=== PATIENT | female | born 1930 | race Caucasian/White ===

== ENCOUNTER 2016-10-17 09:39 | Inpatient (IN) | payer MEDICARE, OTHER ==
--- NOTE | ~2016-10-17 | HP ---
History And Physical [facility] [address] [facility] [place]. [address] NAME: ISSAC CURRIE : 30 STATUS : ADM IN [facility]#: [id number] AGE: 85 ADM/REG DATE : 10/17/16 MR#: [id number] REPORT SERV DATE: 10/17/16 DICTATED BY: GINA MENDOSA DATE: 10/17/16 REPORT STATUS : Draft TRANSCRIBED BY: MODL DATE: 10/17/16 DATE OF ADMISSION: 10/17/2016 CHIEF COMPLAINT: Cough, subjective fever, chills, weakness, and more confusion for one week, getting progressively worse this week. HISTORY OF PRESENT ILLNESS: This is a very pleasant 85 years old female. She has a past medical history significant for severe Alzheimer's dementia. She is most dependent on activities of daily living. History of hypertension, trigeminal neuralgia, hypothyroidism, hyperlipidemia, depression with anxiety, prior valvular replacement, mitral and according to family aortic as well many years ago in [place]. She also had a pacemaker placed at the time of the surgery, presenting today to [facility] accompanied by her family due to decreased p.o. intake as well as a dry cough which got progressively worse this week, increasing confusion and weakness. As I said, the patient has fairly significant history of dementia, so the entire history has been taken by the patient's daughter. She is mostly dependent on the activities of daily living and if she got sick this year, actually she has been able though to feed herself and walk with a cane but she got very weak last week and she barely has been able to get out of her bed. In any case, she went to [place] in between to visit her relatives and while she was driving, she also had an episode of vomiting but that is not unusual for the patient and the fact that she started coughing especially most pronounced weak with possible subjective fevers and chills. The patient has been brought to the emergency room. The patient denies any complaints but coughs. She denies any chest pain. She says that she has been more short of breath and she had that feeling cold. No abdominal pain. No other nausea or vomiting. No diarrhea. More constipation though. No increased urinary frequency or urgency, but decreased significant of the p.o. intake with food and fluids as well. After initial evaluation in the emergency room, Hospitalist Service has been asked for admission, further evaluation, and treatment. PAST MEDICAL HISTORY: Significant for Alzheimer's dementia, hypertension, history of trigeminal neuralgia, hypothyroidism, hyperlipidemia, prior history of breast cancer, not currently in treatment, history of hyperlipidemia, history of degenerative joint disease, and osteoarthritis. PAST SURGICAL HISTORY: Include cholecystectomy, appendectomy, left breast removed, bilateral hip replacement, valvular repair as well as status post pacemaker, and bilateral wrist surgery as well. SOCIAL HISTORY: No tobacco. No alcohol. No IV drugs. ALLERGIES: THE PATIENT DOES NOT HAVE ANY DRUG ALLERGIES. FAMILY HISTORY: Significant for dementia. MEDICATIONS: At home include aspirin; Zebeta; Carbatrol; docusate; Synthroid; Claritin; Aleve; Pravachol; Exelon; Zoloft; and . History And Physical [address] [address] NAME: ISSAC CURRIE : 30 STATUS : ADM IN [facility]#: [id number] AGE: 85 ADM/REG DATE : 10/17/16 MR#: [id number] REPORT SERV DATE: 10/17/16 DICTATED BY: GINA MENDOSA DATE: 10/17/16 REPORT STATUS : Draft TRANSCRIBED BY: SVEN DATE: 10/17/16 REVIEW OF SYSTEMS: A 14-point review of systems has been obtained and pertinent positive has been listed into the history of present illness. Otherwise, negative except those underlying above. PHYSICAL EXAMINATION: VITAL SIGNS: Currently, the patient is afebrile. Blood pressure is 138/63, heart rate 86, respiratory rate 22, and saturating 92% on room air. GENERAL: She generally is a well-developed well-nourished female, ill-appearing, in acute distress. She is alert and oriented x0 at baseline according to family. HEENT: Shows pupils equal, round, reactive to light. Extraocular movements intact. No JVD. No lymphadenopathy. No thyromegaly appreciated. CHEST: Eval shows bilateral air entry. Bibasilarly crackles. No rhonchi or wheezes appreciated. CARDIOVASCULAR: The patient has regular rate and rhythm. Paced S1-S2 positive. No S3, no S4. No murmurs, rubs, or gallops appreciated. ABDOMEN: Soft with positive bowel sounds. Nontender. No guarding. No rebound. EXTREMITIES: No clubbing, cyanosis, or edema. NEUROLOGIC: The patient is alert and oriented x0. She is generalized weak. She follows some commands. She appears nonfocal. Cranial nerves are intact. LABORATORY DATA: Labs from today include sodium 141, potassium 3.2, chloride 107, CO2 of 26, BUN 16, creatinine 1.05, glucose is 112. Her liver function test shows a total bilirubin of 1, alkaline phosphatase 162, ALT 67, AST 80. Troponin-I is 0.03. Her BNP 239.5. Lactate 0.8 white count 11.6, hemoglobin 10.7, hematocrit 31.6, and platelets are 309. Her INR is 1.3. Her UA in the emergency room has been negative. Blood cultures currently are pending. There is a CT of the chest with PE protocol performed in the emergency room showing multiple peripheral foci of parenchymal consolidation bilaterally that the largest in the right lower lobe possible infection such as an atypical infection, possible SHERIDAN, cryptogenic pneumonia, or possible hypersensitivity pneumonitis. ASSESSMENT AND PLAN: 1. This is a very pleasant 85 years old with bilateral bibasilarly atypical pneumonia. 2. Elevated liver function tests. 3. Weakness and debility. 4. Advanced Alzheimer's dementia. 5. History of hypertension. 6. History of trigeminal neuralgia. 7. Hypothyroidism. 8. Hyperlipidemia. 9. History of valvular replacement. 10.Status post pacemaker. The patient is going to be admitted to hospitalist Service. We are going to place her on Levaquin empirically, check blood culture, sputum Gram stain and culture. Check procalcitonin level. Urine Legionella. Urine Pneumococcal antigen as well. We are going to consult Pulmonology for further recommendation, provide symptomatic treatment. Aggressive bronchodilator protocol. Mucinex as well. 11.Elevated liver function tests, questionable etiology. We are going to hold her Pravachol and her carbamazepine currently. Check on hepatitis panel and a CT of the History And Physical [address] [address] NAME: ISSAC CURRIE WILLEM : 30 STATUS : ADM IN PAT#: [id number] AGE: 85 ADM/REG DATE : 10/17/16 MR#: [id number] REPORT SERV DATE: 10/17/16 DICTATED BY: GINA MENDOSA DATE: 10/17/16 REPORT STATUS : Draft TRANSCRIBED BY: SVEN DATE: 10/17/16 abdomen and pelvis without contrast in the morning. 12.History of hypertension. We will continue her Zebeta and provide p.r.n. hydralazine as needed. 13.Hypothyroidism. We will continue her home medications and check on TSH and a free T4. 14.History of dementia. We will continue her home medications. We are going to provide reasonable pain and nausea control as well as GI and DVT prophylaxis. That has been discussed extensively with the patient. All the questions have been answered in full. Further workup and recommendation pending above. 15.It is worthwhile to note that the patient is going to be followed up by Hospitalist Service. BLAKE/SVEN Gina Mendosa M.D. / [id number] CC: Jeanne De La O III, D.O.
--- NOTE | ~2016-10-17 | DS ---
Discharge Summary [facility] [address] [place]. [address] NAME: ISSAC CURRIE : 30 STATUS : DIS IN PAT#: [id number] AGE: 85 ADM/REG DATE : 10/17/16 MR#: [id number] REPORT SERV DATE: 10/25/16 DICTATED BY: AUSTIN COSTELLO DATE: 10/24/16 REPORT STATUS : Draft TRANSCRIBED BY: MODL DATE: 10/24/16 ADMISSION DATE: 10/17/2016 DISCHARGE DATE: 10/24/2016 DISCHARGE DIAGNOSES: 1. Bilateral pneumonia. 2. Bilateral parapneumonic effusions. 3. Dehydration. 4. Oropharyngeal dysphagia with suspected aspiration. 5. Hepatitis. 6. Progressive dementia with agitation. 7. Bowel and bladder incontinence as well as urinary retention. MEDICATIONS: 1. Hypertension. 2. Debility with loss of ability to do activities of daily living. 3. Osteoarthritis. 4. History of breast cancer. 5. Previous mitral valve replacement. 6. Sick sinus syndrome. 7. Hypothyroidism. 8. Acute on chronic anemia. 9. Trigeminal neuralgia. 10.DO NOT RESUSCITATE status. HOSPITAL COURSE: Please note that this is just an addendum to an excellent interim discharge summary dictated by Dr. Anil Snider couple of days ago. By the time I assumed care of this patient yesterday, the patient was already ready for discharge and was awaiting placement. The family decided to go with [facility] to which patient was accepted to today. The patient was thus transferred to [facility] to continue rehab. By the time I assumed care of this patient, the patient did not have any further active medical issues. The patient's pneumonia and effusions have gotten much improved, and the patient was on room air. The main issue was continued urinary retention for which patient is being discharged with a Calderon catheter which will need to be removed with bladder training at [facility]. The patient also continues to have dementia with episodes of agitation that are controlled. The patient is no longer requiring any antibiotics, and she is being discharged without any further antibiotic therapy. Otherwise, there is nothing more to add to Dr. Snider's excellent interim discharge summary. DISCHARGE DISPOSITION: To [facility]. FOLLOWUP: Please follow up with PCP in the next one to two weeks. A total of 40 minutes spent in coordinating this patient's discharge today, a lot of which was spent educating the patient and family. Discharge Summary [address] [address] NAME: ISSAC CURRIE : 30 STATUS : DIS IN PAT#: [id number] AGE: 85 ADM/REG DATE : 10/17/16 MR#: [id number] REPORT SERV DATE: 10/25/16 DICTATED BY: AUSTIN COSTELLO DATE: 10/24/16 REPORT STATUS : Draft TRANSCRIBED BY: SVEN DATE: 10/24/16 DICTATED BY: Austin Costello MD [facility]/SVEN Austin Costello MD / [id number] CC: MD Joe Singh III, D.O.
--- NOTE | ~2016-10-17 | IDS ---
Interim Discharge Summary [place] [id number] [facility]. [address] NAME: ISSAC CURRIE : 30 STATUS : ADM IN [facility]#: [id number] AGE: 85 ADM/REG DATE : 10/17/16 MR#: [id number] REPORT SERV DATE: 10/23/16 DICTATED BY: JIM SNIDER DATE: 10/22/16 REPORT STATUS : Draft TRANSCRIBED BY: MODL DATE: 10/22/16 ADMISSION DATE: 10/17/2016 DISCHARGE DATE: Date of interim summary is 10/22/2016. CURRENT DIAGNOSES: 1. Bilateral pneumonia. 2. Bilateral parapneumonic effusions. 3. Dehydration present on admission. 4. Oropharyngeal dysphagia with suspected aspiration. 5. Hepatitis associated with present illness, improved. 6. Progressive dementia with agitation. 7. Bowel and bladder incontinence. 8. Urinary retention present on admission. Voiding trial initiated today. 9. Hypertension. 10.Debility with loss of ability to do activities of daily living. 11.Osteoarthritis, status post bilateral total hip arthroplasty. 12.History of breast cancer 2003 with recurrence 2008, followed and treated by Dr. Weeks. 13.Previous mitral valve replacement, bioprosthetic, echocardiographic moderate increased transvalvular gradient this admission. 14.Sick sinus syndrome, post pacemaker placement. 15.Hypothyroid on replacement therapy. 16.Acute on chronic anemia. 17.Trigeminal neuralgia, controlled on medical therapy. 18.DNR status. OPERATIONS AND PROCEDURES: None. PRESENT ILLNESS: This is an 85-year-old white female who was triaged in the emergency room on 10/17/2016 at 0802 hours, brought by family because of an abnormal urine color, odor, and gait changes. Admission vital signs; blood pressure 138/63, temp 98.2, pulse 86, respirations 22. After evaluation in the emergency room, she was found to have a chest x-ray evidence for pneumonia. She was referred to the Hospitalist Service. She was seen by Dr. Gina Mendosa, admitted as described on admission history and physical examination. ADDITIONAL HISTORY: Per Dr. Mendosa. PHYSICAL EXAMINATION: Per Dr. Mendosa. ADMISSION LABORATORY DATA: Per Dr. Mendosa. HOSPITAL COURSE: She was admitted by Dr. Mendosa to [address] [place] [address] with assessment: Interim Discharge Summary [facility] [address] [facility] [place]. [address] NAME: ISSAC CURRIE : 30 STATUS : ADM IN PAT#: [id number] AGE: 85 ADM/REG DATE : 10/17/16 MR#: [id number] REPORT SERV DATE: 10/23/16 DICTATED BY: JIM SNIDER DATE: 10/22/16 REPORT STATUS : Draft TRANSCRIBED BY: SVEN DATE: 10/22/16 1. Bilateral pneumonia. 2. Elevated liver tests. 3. Weakness and debility. 4. Advanced Alzheimer's dementia. 5. History of hypertension. 6. History of trigeminal neuralgia. 7. Hypothyroidism. 8. Hyperlipidemia. 9. History of valve replacement. 10.Pacemaker placement. On admission, cultures were obtained. She was started on antimicrobial therapy. Additional diagnostic studies were performed. Her hospitalist care was assumed by the undersigned on 10/18/2016. A swallow study was done at bedside on 10/19/2016. There were no overt signs or symptoms of aspiration, but it was noted that her significant cognitive impairment might be affecting her p.o. intake. Clinically, it was felt that she was aspirating on an intermittent basis. On admission, she was started on Levaquin. She had some insomnia that was thought to be related in part to this. She was changed to Rocephin and Zithromax with possibly some improvement. A C-reactive protein was elevated at 279 on 10/18/2016. With the above-mentioned treatment, it has fallen to 191 on 10/21/2016. Streptococcal urinary antigen and Legionella urinary antigens are not detected. Blood cultures drawn on admission are no growth at four days. In the emergency room, a CT scan of the chest was done because of concern for pulmonary embolus. None was seen. Multiple peripheral foci or peripheral consolidation was noted as described above. A followup chest x-ray was done on 10/21/2016 to evaluate parapneumonic effusions. This showed enlarging small bilateral pleural effusions with increasing airspace disease with consolidation in the left base. There was stable airspace disease with consolidation at the right lung base. There was a new small infiltrate in the right upper lobe. She was seen by Pulmonary. Her parapneumonic effusions were not thought to be large enough to warrant thoracentesis. It was also noted that she has significant bibasilar atelectasis. Clinically with antimicrobial therapy, there has been some improvement in her mental status. Her p.o. intake has increased. Her physical status has been evaluated by Physical Therapy. Assisted Facility versus 10/12 supervision assistance at home with home health care PT was recommended. Her family has opted for fpc facility and Case Management is pursuing this with [facility] at this time. Interim Discharge Summary [address] [address] NAME: ISSAC CURRIE : 30 STATUS : ADM IN PAT#: [id number] AGE: 85 ADM/REG DATE : 10/17/16 MR#: [id number] REPORT SERV DATE: 10/23/16 DICTATED BY: JIM SNIDER DATE: 10/22/16 REPORT STATUS : Draft TRANSCRIBED BY: SVEN DATE: 10/22/16 She had significant urinary retention on admission. A Calderon catheter was maintained until today. Her catheter was removed and a voiding trial is being initiated. If she has significant residual, her catheter will be replaced. There was an element of significant dehydration on admission. Admission BUN was 16. With rehydration, her BUN is 7. Associated with her present illness, her liver tests were elevated. Her bilirubin was 1 and fell to 0.6, alkaline phosphatase 162 falling to 144, ALT 67 falling to 58, AST 80 falling to 56. Hepatitis profile was nonreactive. No further evaluation is being pursued at this time given her other comorbidities and prognosis. She developed an acute anemia. Her evaluation included an iron of 16, TIBC 171, and ferritin 329 consistent with anemia of chronic disease. B12 was 321, TSH 1.49, and serum protein electrophoresis did not demonstrate any monoclonal gammopathy. Her overall prognosis was discussed with the patient's daughter who has been her cardiac care unit nurse. Her code status was discussed. She was made a full DNR. Hospitalist care to be assumed by [address] [place] [address] team on 10/23/2016. DD/SVEN Jim Snider M.D. / [id number] CC: Jeanne De La O III, D.O.
--- NOTE | ~2016-10-17 | CN ---
Consultation Report [place] [id number] [facility] [place]. [address] NAME: DAGMAR HARRINGTON : 30 STATUS : ADM IN PAT#: [id number] AGE: 85 ADM/REG DATE : 10/17/16 MR#: [id number] REPORT SERV DATE: 10/18/16 DICTATED BY: CORKY BOWMAN DATE: 10/18/16 REPORT STATUS : Draft TRANSCRIBED BY: MODCasper DATE: 10/18/16 DATE OF CONSULTATION: Dear Dr. Snider: Thank you for requesting my opinion regarding evaluation and management of Ms. Harrington's pneumonia. Ms. Harrington is a pleasant, but unfortunate 85-year-old female with severe Alzheimer's dementia, fully dependent on her ADLs, hypertension, trigeminal neuralgia, hypothyroidism, depression with anxiety and prior valvular replacement, who presents to [facility] with worsening shortness of breath, decreased p.o. intake, and cough. The patient underwent a subsequent CT scan of the chest on 10/17/2016 that demonstrated interval development of multiple peripheral foci of parenchymal consolidation enlarged in the right lower lobe, with some subpleural linear densities including atelectasis. The differential diagnosis includes Mycobacterium avium-intracellulare, cryptogenic organizing pneumonia, and hypersensitivity pneumonitis. The patient is unable to provide a history due to her severe dementia and has unintelligible speech. REVIEW OF SYSTEMS: Could not be obtained due to her advanced dementia. PAST MEDICAL HISTORY: 1. Severe Alzheimer's dementia. 2. Hypertension. 3. Trigeminal neuralgia. 4. Hypothyroidism. 5. History of breast cancer. 6. Hyperlipidemia. 7. DJD. 8. Osteoarthritis. PAST SURGICAL HISTORY: 1. Cholecystectomy. 2. Appendectomy. 3. Left breast removed. 4. Bilateral hip replacement. 5. Valvular repair, status post pacemaker placement. 6. Bilateral wrist surgery. SOCIAL HISTORY: The patient has no history of alcohol, tobacco, or illicit drug abuse. ALLERGIES: NO KNOWN DRUG ALLERGIES. HOME MEDICATIONS: Reviewed and located in the paper chart. Consultation Report [place] [id number] [facility] [place]. [address] NAME: DAGMAR HARRINGTON : 30 STATUS : ADM IN PAT#: [id number] AGE: 85 ADM/REG DATE : 10/17/16 MR#: [id number] REPORT SERV DATE: 10/18/16 DICTATED BY: GRACIEMEENAJEREMIE DATE: 10/18/16 REPORT STATUS : Draft TRANSCRIBED BY: SVEN DATE: 10/18/16 FAMILY HISTORY: Dementia. PHYSICAL EXAMINATION: VITAL SIGNS: Afebrile with T-current of 96.7, pulse is 74, respiratory rate of 22, room air 95%, blood pressure 139/59. GENERAL: Elderly female with severe dementia and unintelligible speech. HEENT: Normocephalic and atraumatic. Pupils equal, round, reactive to light and accommodation. Posterior oropharynx is clear. NECK: Thin neck. CARDIOVASCULAR: Regular rate and rhythm. S1 and S2 present. LUNGS: Coarse bilateral breath sounds, worse at the bases with rhonchi. ABDOMEN: Nontender, nondistended, soft. Positive bowel sounds. EXTREMITIES: No clubbing, cyanosis, or edema. SKIN: No new rashes, lesions, or ulcers. PSYCHIATRIC: Unable to assess given the patient's severe dementia. NEUROLOGIC: Moving all four extremities. Cranial nerves 2 through 12 appear to be intact. LABORATORY DATA: White count of 10, hemoglobin of 10, platelet count of 318. Negative procalcitonin. Creatinine is 0.96. CRP of 239. Negative hepatitis labs and negative urine and Legionella. IMAGING: Chest CTA on 10/17/2016 was personally reviewed by me and has multiple peripheral foci of parenchymal consolidation enlarged in the right lower lobe and subpleural linear densities consistent with atelectasis. I do not think that this appears to be consistent with either Mycobacterium avium-intracellulare, cryptogenic organizing pneumonia is obviously a possibility as well as hypersensitivity pneumonitis. However, given the clinical context, it is more likely that this represents aspiration pneumonia. This CT scan was personally reviewed by me, and I agree with the above interpretation and defer slightly from the radiographic interpretation. ASSESSMENT AND PLAN: Ms. Dagmar Harrington is a pleasant, but unfortunate 85-year-old female with a significant past medical history of advanced dementia, who presents to [facility] with a one-week history of worsening shortness of breath. CT scan confirms presence of potential pneumonic infiltrates as well as linear densities, more consistent with either pleural or parenchymal scarring or atelectasis. The clinical and radiographic presentation is most consistent with likely aspiration pneumonia. The patient is significantly improved during her hospital stay and is currently on room air. A summary of my recommendations is as follows: 1. Agree with swallow study. The patient could be considered for tube feeding. 2. Continue ceftriaxone and azithromycin. Continue current bronchodilators and oxygen therapy. I recommend antibiotic therapy with outpatient followup over proceeding with a bronchoscopic biopsy at this point given the patient's severe comorbidities, advanced Consultation Report [place] [id number] [facility] [place] [address] NAME: DAGMAR HARRINGTON : 30 STATUS : ADM IN PAT#: [id number] AGE: 85 ADM/REG DATE : 10/17/16 MR#: [id number] REPORT SERV DATE: 10/18/16 DICTATED BY: CORKY BOWMAN DATE: 10/18/16 REPORT STATUS : Draft TRANSCRIBED BY: SVEN DATE: 10/18/16 dementia, and her already improved clinical respiratory status on room air and feeling comfortable. Thank you for allowing me to participate in Ms. Harrington's care. DEBRA/SVEN Corky Bowman M.D. / [id number] CC: Jeanne De La O III, D.O.
[2016-10-17 09:11] LABS: BASOPHILS 0.1 %; BASOPHILS ABSOLUTE 0.01 10/3/uL (0.0-0.16); EOSINOPHILS 2.5 %; EOSINOPHILS ABSOLUTE 0.29 10/3/uL (0.0-0.53); HEMOGLOBIN 10.7 g/dL (12.0-16.0); IMMATURE GRANULOCYTES 0.5 %; IMMATURE GRANULOCYTES ABSOLUTE 0.06 10/3/uL (0.0-0.11); LYMPHOCYTES ABSOLUTE 0.58 10/3/uL (0.67-4.30); MEAN CORPUS HGB CONC 33.9 g/dL (32.0-36.0); MEAN CORPUSCULAR HEMOGLOB 30.2 pg (26.0-34.0); MEAN CORPUSCULAR VOLUME 89.3 fL (80-100); MEAN PLATELET VOLUME 8.9 fL (9.2-13.0); MONOCYTES 5.8 %; MONOCYTES ABSOLUTE 0.67 10/3/uL (0.21-1.20); NEUTROPHILS 86.1 %; NEUTROPHILS ABSOLUTE 9.95 10/3/uL (2.02-8.40); RBC DISTRIBUTION WIDTH 12.7 % (12.0-16.0); RED CELL COUNT 3.54 10/6/uL (4.0-5.6)
[2016-10-17 09:13] LABS: ER CBC TAT 0 Hrs 14 Mins; HEMATOCRIT 31.6 % (36.0-48.0); INTERNATIONAL NORMAL RATI 1.3 UNITS (-); MANUAL DIFF NO %; PARTIAL THROMBO TIME 32.8 SEC (22.5-37.2); PLATELET COUNT 309 10/3/uL (150-400); PROTIME (NOT ORD) 15.8 SEC (12.0-14.5); WHITE BLOOD CELLS 11.6 10/3/uL (4.5-10.5)
[2016-10-17 09:24] LABS: LACTATE 0.8 MMOL/L (0.3-2.4)
[2016-10-17 09:25] LABS: A/G RATIO 0.6 (0.7-1.9); ALBUMIN 2.6 G/DL (3.5-5.0); ALKALINE PHOSPHATASE 162 U/L (45-117); BUN (BLOOD UREA NITROGEN) 16 MG/DL (6-23); CALCIUM, SERUM 8.6 MG/DL (8.5-10.4); CHLORIDE, SERUM 107 MMOL/L (96-112); CO2 (CARBON DIOXIDE) 26 MMOL/L (24-34); CREATININE 1.05 MG/DL (0.55-1.02); GFR AFRICAN AMERICAN 56 ML/MIN (>=60); GFR NON AFRICAN AMERICAN 48 ML/MIN (>=60); GLOBULIN 4.2 G/DL (2.5-4.1); GLUCOSE, SERUM 112 MG/DL (60-99); POTASSIUM, SERUM 3.2 MMOL/L (3.5-5.3); SGOT(AST) 80 U/L (5-40); SGPT(ALT) 67 U/L (5-65); SODIUM, SERUM 141 MMOL/L (135-148); TOTAL PROTEIN 6.8 G/DL (6.0-8.5)
[~2016-10-17 09:39] MED LIST: ALEVE220 MG PO; CARBAT300 PO; CLARIT10 PO; D.O.S.100 MG PO; EXELON1.5 PO; HALF81 PO; PRAVAC PO; SYN.05 PO; ZBETA10 PO; ZOL50 PO
[2016-10-17] MEDS ORDERED: CHLO TUSS PO (09:40)
[2016-10-17 09:52] LABS: TROPONIN I 0.03 NG/ML (<0.05)
[2016-10-17 09:53] LABS: PROCALCITONIN 0.14 ng/mL (<0.5)
[2016-10-17 10:55] LABS: ASCORBIC ACID (UR NOT ORDER) NEG (NEG); BILIRUBIN, URINE NEGATIVE (NEG); KETONE, URINE NEGATIVE (NEG); LEUKOCYTE ESTERASE(NOT OR NEG (NEG); NITRITE (URINE) NEG (NEG); WBC (NOT ORDERED) (RFLEX) 2 (0-5)
[2016-10-17 11:04] LABS: ER URINALYSIS TAT 1 Hrs 02 Mins
[2016-10-17 17:01] LABS: FERRITIN 329 NG/ML (8-252); IRON BINDING CAPACITY 171 MCG/DL (225-410); IRON, SERUM 16 MCG/DL (35-150); PHOSPHORUS, SERUM 2.6 MG/DL (2.5-4.5)
[2016-10-17 22:06] LABS: GLYCOHEMOGLOBIN (HbA1c) 5.2 % (4.7-6.1)
[2016-10-18 05:10] LABS: BASOPHILS 0 %; EOSINOPHILS 0.9 %; HEMATOCRIT 30.3 % (36.0-48.0); HEMOGLOBIN 10.2 g/dL (12.0-16.0); IMMATURE GRANULOCYTES 0.8 %; IMMATURE GRANULOCYTES ABSOLUTE 0.08 10/3/uL (0.0-0.11); LYMPHOCYTES 6.7 %; LYMPHOCYTES ABSOLUTE 0.71 10/3/uL (0.67-4.30); MEAN CORPUS HGB CONC 33.7 g/dL (32.0-36.0); MEAN CORPUSCULAR VOLUME 89.1 fL (80-100); MEAN PLATELET VOLUME 8.8 fL (9.2-13.0); MONOCYTES ABSOLUTE 0.53 10/3/uL (0.21-1.20); NEUTROPHILS 86.6 %; NEUTROPHILS ABSOLUTE 9.24 10/3/uL (2.02-8.40); PLATELET COUNT 318 10/3/uL (150-400); RBC DISTRIBUTION WIDTH 12.7 % (12.0-16.0); WHITE BLOOD CELLS 10.7 10/3/uL (4.5-10.5)
[2016-10-18 05:14] LABS: A/G RATIO 0.6 (0.7-1.9); ALBUMIN 2.3 G/DL (3.5-5.0); BUN (BLOOD UREA NITROGEN) 15 MG/DL (6-23); CALCIUM, SERUM 8.5 MG/DL (8.5-10.4); CHLORIDE, SERUM 111 MMOL/L (96-112); CHOL/HDL RATIO(NOT ORDER) 3.7 (0-5); CHOLESTEROL 107 MG/DL (< 200); CO2 (CARBON DIOXIDE) 25 MMOL/L (24-34); CREATININE 0.96 MG/DL (0.55-1.02); GFR AFRICAN AMERICAN 63 ML/MIN (>=60); GFR NON AFRICAN AMERICAN 54 ML/MIN (>=60); GLOBULIN 4.1 G/DL (2.5-4.1); GLUCOSE, SERUM 92 MG/DL (60-99); HDL CHOLESTEROL 29 MG/DL (> 49); LDL CHOLESTEROL 65 MG/DL (< 130); NON-HDL CHOLESTEROL 78 MG/DL (< 160); POTASSIUM, SERUM 3.8 MMOL/L (3.5-5.3); SGOT(AST) 56 U/L (5-40); SGPT(ALT) 58 U/L (5-65); SODIUM, SERUM 145 MMOL/L (135-148); TOTAL BILIRUBIN 0.6 MG/DL (0-1.2); TOTAL PROTEIN 6.4 G/DL (6.0-8.5); TRIGLYCERIDE 68 MG/DL (< 150)
[2016-10-18 05:15] LABS: ALKALINE PHOSPHATASE 144 U/L (45-117)
[2016-10-18 05:18] LABS: MANUAL DIFF NO %
[2016-10-18 08:43] LABS: HEPATITIS B SURFACE ANTIGEN NON-REACTIVE (NON-REACT)
[2016-10-18 08:58] LABS: HEPATITIS C ANTIBODY NON-REACTIVE (NON-REACT)
[2016-10-18 08:59] LABS: HEPATITIS B CORE AB IGM NON-REACTIVE (NON-REAC)
[2016-10-18 09:00] LABS: HEP A ANTIBODY IGM NON-REACTIVE (NON-REACT)
[2016-10-18 19:32] LABS: ALLENS TEST Pos; BE (BASE EXCESS) 1.6 MEQ/L (0 +/- 2.5); HCO3 (ACTUAL BICARBONATE) 23.5 MEQ/L (23-27); INSTRUMENT SERIAL # 8087; PCO2 (CO2 TENSION) 30 MMHG (35-45); PO2 (O2 TENSION) 64 MMHG (79-93); SAMPLE Arterial; pH 7.52 (7.37-7.43)
[2016-10-19 07:06] LABS: BASOPHILS 0.3 %; BASOPHILS ABSOLUTE 0.02 10/3/uL (0.0-0.16); EOSINOPHILS 1.4 %; EOSINOPHILS ABSOLUTE 0.11 10/3/uL (0.0-0.53); HEMATOCRIT 28.8 % (36.0-48.0); HEMOGLOBIN 9.7 g/dL (12.0-16.0); IMMATURE GRANULOCYTES 1.4 %; IMMATURE GRANULOCYTES ABSOLUTE 0.11 10/3/uL (0.0-0.11); LYMPHOCYTES 7.3 %; LYMPHOCYTES ABSOLUTE 0.58 10/3/uL (0.67-4.30); MEAN CORPUS HGB CONC 33.7 g/dL (32.0-36.0); MEAN CORPUSCULAR HEMOGLOB 29.9 pg (26.0-34.0); MEAN CORPUSCULAR VOLUME 88.9 fL (80-100); MEAN PLATELET VOLUME 8.6 fL (9.2-13.0); MONOCYTES ABSOLUTE 0.64 10/3/uL (0.21-1.20); NEUTROPHILS 81.6 %; NEUTROPHILS ABSOLUTE 6.52 10/3/uL (2.02-8.40); PLATELET COUNT 311 10/3/uL (150-400); RBC DISTRIBUTION WIDTH 12.9 % (12.0-16.0); RED CELL COUNT 3.24 10/6/uL (4.0-5.6)
[2016-10-19 07:07] LABS: MANUAL DIFF NO %
[2016-10-19 07:13] LABS: BUN (BLOOD UREA NITROGEN) 13 MG/DL (6-23); CALCIUM, SERUM 8.3 MG/DL (8.5-10.4); CHLORIDE, SERUM 112 MMOL/L (96-112); CO2 (CARBON DIOXIDE) 22 MMOL/L (24-34); CREATININE 0.93 MG/DL (0.55-1.02); GFR AFRICAN AMERICAN 65 ML/MIN (>=60); GFR NON AFRICAN AMERICAN 56 ML/MIN (>=60); GLUCOSE, SERUM 95 MG/DL (60-99); POTASSIUM, SERUM 3.8 MMOL/L (3.5-5.3); SODIUM, SERUM 143 MMOL/L (135-148)
[2016-10-19 15:18] LABS: T PROTEIN (ELECT)(NOT OR 5.6 G/DL (6.0-8.5)
[2016-10-20 04:02] LABS: BASOPHILS 0.4 %; BASOPHILS ABSOLUTE 0.03 10/3/uL (0.0-0.16); EOSINOPHILS 3.5 %; EOSINOPHILS ABSOLUTE 0.26 10/3/uL (0.0-0.53); HEMOGLOBIN 9.4 g/dL (12.0-16.0); IMMATURE GRANULOCYTES 2.8 %; IMMATURE GRANULOCYTES ABSOLUTE 0.21 10/3/uL (0.0-0.11); LYMPHOCYTES ABSOLUTE 0.82 10/3/uL (0.67-4.30); MEAN CORPUS HGB CONC 32.4 g/dL (32.0-36.0); MEAN CORPUSCULAR HEMOGLOB 29.2 pg (26.0-34.0); MEAN CORPUSCULAR VOLUME 90.1 fL (80-100); MEAN PLATELET VOLUME 8.6 fL (9.2-13.0); MONOCYTES 7.1 %; MONOCYTES ABSOLUTE 0.53 10/3/uL (0.21-1.20); NEUTROPHILS 75.2 %; NEUTROPHILS ABSOLUTE 5.59 10/3/uL (2.02-8.40); PLATELET COUNT 309 10/3/uL (150-400); RBC DISTRIBUTION WIDTH 13.2 % (12.0-16.0); RED CELL COUNT 3.22 10/6/uL (4.0-5.6); WHITE BLOOD CELLS 7.4 10/3/uL (4.5-10.5)
[2016-10-20 04:03] LABS: MANUAL DIFF NO %
[2016-10-20 04:11] LABS: CALCIUM, SERUM 8.2 MG/DL (8.5-10.4); CHLORIDE, SERUM 115 MMOL/L (96-112); CO2 (CARBON DIOXIDE) 20 MMOL/L (24-34); GFR AFRICAN AMERICAN 68 ML/MIN (>=60); GFR NON AFRICAN AMERICAN 58 ML/MIN (>=60); GLUCOSE, SERUM 95 MG/DL (60-99); POTASSIUM, SERUM 4.3 MMOL/L (3.5-5.3); SODIUM, SERUM 142 MMOL/L (135-148)
[2016-10-20 04:12] LABS: BUN (BLOOD UREA NITROGEN) 9 MG/DL (6-23)
[2016-10-21 05:08] LABS: BASOPHILS 0.4 %; BASOPHILS ABSOLUTE 0.03 10/3/uL (0.0-0.16); EOSINOPHILS 4.4 %; EOSINOPHILS ABSOLUTE 0.35 10/3/uL (0.0-0.53); HEMATOCRIT 30.6 % (36.0-48.0); HEMOGLOBIN 10.1 g/dL (12.0-16.0); IMMATURE GRANULOCYTES 2.7 %; IMMATURE GRANULOCYTES ABSOLUTE 0.21 10/3/uL (0.0-0.11); LYMPHOCYTES 11.4 %; MEAN CORPUSCULAR HEMOGLOB 29.4 pg (26.0-34.0); MEAN PLATELET VOLUME 8.7 fL (9.2-13.0); MONOCYTES 5.6 %; MONOCYTES ABSOLUTE 0.44 10/3/uL (0.21-1.20); NEUTROPHILS 75.5 %; NEUTROPHILS ABSOLUTE 5.96 10/3/uL (2.02-8.40); PLATELET COUNT 329 10/3/uL (150-400); RBC DISTRIBUTION WIDTH 13.2 % (12.0-16.0); RED CELL COUNT 3.44 10/6/uL (4.0-5.6); WHITE BLOOD CELLS 7.9 10/3/uL (4.5-10.5)
[2016-10-21 05:09] LABS: MANUAL DIFF NO %
[2016-10-21 05:13] LABS: BUN (BLOOD UREA NITROGEN) 7 MG/DL (6-23); CALCIUM, SERUM 8.5 MG/DL (8.5-10.4); CHLORIDE, SERUM 112 MMOL/L (96-112); CO2 (CARBON DIOXIDE) 22 MMOL/L (24-34); CREATININE 0.95 MG/DL (0.55-1.02); GFR AFRICAN AMERICAN 63 ML/MIN (>=60); GFR NON AFRICAN AMERICAN 55 ML/MIN (>=60); GLUCOSE, SERUM 92 MG/DL (60-99); SODIUM, SERUM 139 MMOL/L (135-148)
[2016-10-22 14:38] LABS: A/G 0.84 RATIO (0.9-2.10); ALB RELATIVE % 45.7 % (60.0-89.0); ALBUMIN (ELECTRO) 2.56 GM/DL (3.2-5.5); ALPHA 1 (ELECTRO) 0.35 GM/DL (0.1-0.4); ALPHA 1 RELAT % (NOT ORD) 6.3 % (1.0-4.0); ALPHA 2 (ELECTRO) 1.22 GM/DL (0.5-1.10); ALPHA 2 RELAT % 21.8 % (4.5-26.0); BETA GLOBULIN (SPE) 0.69 GM/DL (0.60-1.30); BETA RELATIVE % 12.4 % (9.0-22.0); GAMMA GLOBULIN (SPE) 0.77 G/DL (0.70-1.60); GAMMA RELAT % 13.8 % (6.0-22.0)
[2016-10-23 04:49] LABS: BASOPHILS 0.3 %; BASOPHILS ABSOLUTE 0.03 10/3/uL (0.0-0.16); EOSINOPHILS 3.3 %; EOSINOPHILS ABSOLUTE 0.28 10/3/uL (0.0-0.53); HEMATOCRIT 32.9 % (36.0-48.0); HEMOGLOBIN 11.1 g/dL (12.0-16.0); IMMATURE GRANULOCYTES 1.9 %; IMMATURE GRANULOCYTES ABSOLUTE 0.16 10/3/uL (0.0-0.11); LYMPHOCYTES 8.3 %; LYMPHOCYTES ABSOLUTE 0.71 10/3/uL (0.67-4.30); MEAN CORPUS HGB CONC 33.7 g/dL (32.0-36.0); MEAN CORPUSCULAR VOLUME 88.9 fL (80-100); MEAN PLATELET VOLUME 8.8 fL (9.2-13.0); MONOCYTES 5.4 %; MONOCYTES ABSOLUTE 0.46 10/3/uL (0.21-1.20); NEUTROPHILS 80.8 %; NEUTROPHILS ABSOLUTE 6.95 10/3/uL (2.02-8.40); PLATELET COUNT 421 10/3/uL (150-400); WHITE BLOOD CELLS 8.6 10/3/uL (4.5-10.5)
[2016-10-23 04:50] LABS: MANUAL DIFF NO %
[2016-10-23 05:02] LABS: BUN (BLOOD UREA NITROGEN) 9 MG/DL (6-23); CALCIUM, SERUM 9.1 MG/DL (8.5-10.4); CHLORIDE, SERUM 105 MMOL/L (96-112); CO2 (CARBON DIOXIDE) 26 MMOL/L (24-34); CREATININE 1.02 MG/DL (0.55-1.02); GFR AFRICAN AMERICAN 58 ML/MIN (>=60); GFR NON AFRICAN AMERICAN 50 ML/MIN (>=60); GLUCOSE, SERUM 84 MG/DL (60-99); POTASSIUM, SERUM 3.7 MMOL/L (3.5-5.3); SODIUM, SERUM 136 MMOL/L (135-148)
== END 2016-10-24 13:42 | DRG 178 ==
LOC: ER 09:39 → 6NO 15:04
PROVIDERS: Internal Medicine; Nurse Practitioner
DX: J69.0 Pneumonitis due to inhalation of food and vomit (principal); J91.8 Pleural effusion in other conditions classified elsewhere; G30.9 Alzheimer's disease, unspecified; E86.0 Dehydration; R13.12 Dysphagia, oropharyngeal phase; F02.81 Dementia in other diseases classified elsewhere, unspecified severity, with behavioral disturbance; I10 Essential (primary) hypertension; E03.9 Hypothyroidism, unspecified; R33.9 Retention of urine, unspecified; R15.9 Full incontinence of feces; R32 Unspecified urinary incontinence; G50.0 Trigeminal neuralgia; M19.90 Unspecified osteoarthritis, unspecified site; Z66 Do not resuscitate; Z95.0 Presence of cardiac pacemaker; Z85.3 Personal history of malignant neoplasm of breast; Z96.643 Presence of artificial hip joint, bilateral; Z95.2 Presence of prosthetic heart valve
CPT/HCPCS: 36600; 71010; 71275; 74176; 80048; 80053; 80061; 80074; 81001; 82140; 82150; 82607; 82728; 82805; 83036; 83540; 83550; 83605; 83615; 83690; 83735; 83880; 84100; 84145; 84155; 84165; 84484; 85025; 85610; 85730; 86140; 87040; 87449; 92610-GN; 93005; 93306; 94640; 96374; 97161-GP; 97530-GP; 99285; A9270-GY; G8978-CK-GP; G8979-CI-GP; G8996-CJ-GN; G8997-CJ-GN; G8998-CJ-GN; J0456; J1956; J2930; Q9967

== ENCOUNTER 2016-10-29 10:27 | Emergency (ER) | payer MEDICARE, OTHER ==
[2016-10-29 09:19] LABS: BASOPHILS 0.4 %; BASOPHILS ABSOLUTE 0.03 10/3/uL (0.0-0.16); EOSINOPHILS 1.9 %; EOSINOPHILS ABSOLUTE 0.15 10/3/uL (0.0-0.53); HEMATOCRIT 31.6 % (36.0-48.0); HEMOGLOBIN 10.6 g/dL (12.0-16.0); IMMATURE GRANULOCYTES 0.3 %; IMMATURE GRANULOCYTES ABSOLUTE 0.02 10/3/uL (0.0-0.11); LYMPHOCYTES ABSOLUTE 0.79 10/3/uL (0.67-4.30); MEAN CORPUS HGB CONC 33.5 g/dL (32.0-36.0); MEAN CORPUSCULAR HEMOGLOB 30.4 pg (26.0-34.0); MEAN CORPUSCULAR VOLUME 90.5 fL (80-100); MEAN PLATELET VOLUME 8.7 fL (9.2-13.0); MONOCYTES 5.9 %; MONOCYTES ABSOLUTE 0.47 10/3/uL (0.21-1.20); NEUTROPHILS 81.5 %; NEUTROPHILS ABSOLUTE 6.47 10/3/uL (2.02-8.40); PLATELET COUNT 370 10/3/uL (150-400); RBC DISTRIBUTION WIDTH 13.2 % (12.0-16.0); RED CELL COUNT 3.49 10/6/uL (4.0-5.6); WHITE BLOOD CELLS 7.9 10/3/uL (4.5-10.5)
[2016-10-29 09:23] LABS: MANUAL DIFF NO %
[2016-10-29 09:37] LABS: A/G RATIO 0.6 (0.7-1.9); ALBUMIN 2.7 G/DL (3.5-5.0); BUN (BLOOD UREA NITROGEN) 11 MG/DL (6-23); CALCIUM, SERUM 8.9 MG/DL (8.5-10.4); CHLORIDE, SERUM 107 MMOL/L (96-112); CO2 (CARBON DIOXIDE) 25 MMOL/L (24-34); CREATININE 0.86 MG/DL (0.55-1.02); GFR AFRICAN AMERICAN 71 ML/MIN (>=60); GFR NON AFRICAN AMERICAN 62 ML/MIN (>=60); GLOBULIN 4.3 G/DL (2.5-4.1); POTASSIUM, SERUM 4.3 MMOL/L (3.5-5.3); SGOT(AST) 23 U/L (5-40); SGPT(ALT) 27 U/L (5-65); SODIUM, SERUM 140 MMOL/L (135-148); TOTAL BILIRUBIN 0.3 MG/DL (0-1.2)
[2016-10-29 09:38] LABS: ALKALINE PHOSPHATASE 114 U/L (45-117); GLUCOSE, SERUM 101 MG/DL (60-99)
[2016-10-29 10:15] LABS: ASCORBIC ACID (UR NOT ORDER) NEG (NEG); BILIRUBIN, URINE NEGATIVE (NEG); ER URINALYSIS TAT 0 Hrs 16 Mins; KETONE, URINE NEGATIVE (NEG); LEUKOCYTE ESTERASE(NOT OR MOD (NEG); NITRITE (URINE) NEG (NEG); WBC (NOT ORDERED) (RFLEX) 65 (0-5)
[~2016-10-29 10:27] MED LIST changes: +CHLO TUSS PO
== END 2016-10-29 12:08 | disposition home or self-care (01) ==
LOC: ER 10:27
PROVIDERS: Emergency Medicine
DX: Z46.6 Encounter for fitting and adjustment of urinary device (principal); L98.9 Disorder of the skin and subcutaneous tissue, unspecified; N39.0 Urinary tract infection, site not specified; Z86.73 Personal history of transient ischemic attack (TIA), and cerebral infarction without residual deficits; F03.90 Unspecified dementia, unspecified severity, without behavioral disturbance, psychotic disturbance, mood disturbance, and anxiety; Z87.01 Personal history of pneumonia (recurrent); I10 Essential (primary) hypertension; Z95.0 Presence of cardiac pacemaker; F32.9 Major depressive disorder, single episode, unspecified; Z79.899 Other long term (current) drug therapy; Z79.82 Long term (current) use of aspirin; W19.XXXA Unspecified fall, initial encounter
CPT/HCPCS: 73522; 80053; 81001; 85025; 87086; 99285